=== PATIENT | female | born 1975 | race Caucasian/White ===

== ENCOUNTER → 2020-12-18 | Outpatient (CLI) | payer BC ==
[~2020-12-18] MED LIST: ADVIL200 MG PO; CELEXA 20MG20 MG/TAB PO; NORCO 325 MG-7.1 TAB PO; PRENATAL VITAMI1 TA5 PO; RITALIN 20M20 MG/TAB PO
== END ==
LOC: MC.RAD 07:00
DX: Z12.31 Encounter for screening mammogram for malignant neoplasm of breast (principal)

== ENCOUNTER → 2023-10-03 | Outpatient (CLI) | payer BC ==
[~2023-10-03] MED LIST changes: +CIPRO 500MG TA500 MG PO; +NORCO 325 MG-51 TAB PO; +ZOFRAN ODT4 MG PO
== END ==
LOC: MC.RAD 08:23
DX: Z12.31 Encounter for screening mammogram for malignant neoplasm of breast (principal)